=== PATIENT | male | born 1980 | race Caucasian/White ===

== ENCOUNTER → 2021-01-19 08:52 | Outpatient (CLI) | payer OTHER, SELFPAY ==
[2021-01-19 11:17] LABS: COVID19 -Nasal RAPID Negative (Negative)
== END ==
PROVIDERS: Visit Provider Specialist
DX: Z20.822 Contact with and (suspected) exposure to COVID-19 (principal)
CPT/HCPCS: 87635; C9803

== ENCOUNTER 2021-01-20 10:08 | Day surgery (SDC) | payer OTHER, SELFPAY ==
[2021-01-18 09:49] VITALS: BMI 29.1
[2021-01-20] VITALS (9 sets, daily range): BP systolic 123–144; BP diastolic 80–92; PULSE 70–84; RESP 12–20; TEMP 36.1–37.1; O2SAT 96–99; BMI 29.1
[2021-01-20] MEDS: LACTATED RINGERS 1,000 ML 42 ML IV (10:31)
[2021-01-20] MEDS: ACETAMINOPHEN 325 MG TABLET 975 MG PO (10:49)
[2021-01-20] MEDS: GABAPENTIN 300 MG CAPSULE PO (10:50)
--- NOTE | 2021-01-20 14:46 | PM.PREOP ---
Pre-operative Note COVID-19 COVID-19 status: Negative Result date/Date tested (Pos, Neg/Pending): 01/19/21 Interval Note History & Physical reviewed/Exam performed by Physician: Yes Changes to H&P: No
[2021-01-20] MEDS: CEFAZOLIN 1 GM VIAL 2 GM IV (15:11)
--- NOTE | 2021-01-20 15:19 | SUR.OPER ---
Supine on padded OR bed, head on pillow, arms secured on padded arm boards at <90 degrees abduction, legs uncrossed, safety belt at thigh, tape over blanket over lower legs.
[2021-01-20] MEDS: BUPIVACAINE 0.25% (PF) VIAL 30 ML INJ (15:23)
--- NOTE | 2021-01-20 16:10 | PM.OP.1 ---
Operative Date/Time/Diagnoses Date of procedure: 01/20/21 Time of procedure: 16:10 Pre-op diagnosis: Reducible left inguinal hernia Post-op diagnosis: same Procedure & Clinicians Procedure: repair with plug and patch technique Same procedure as scheduled: Yes Indications: symptomatic hernia Surgeon: Garrison Coppola Click Yes if Unassisted: Yes Anesthesia Type: General Operative Notes Findings: no indirect sac. Large lipoma of the cord. Closure Type: primary Specimen(s): none sent Prosthetic devices, grafts, tissues, transplants, or devices: small plug and patch Blood products transfused: none Procedure in detail: The patient was placed supine on the operating room table and underwent general LMA anesthesia. He was prepped and draped in the usual fashion. A transverse incision was made overlying the Leftinternal ring and carried down to the level of the external oblique. The external oblique was opened parallel with its fibers through the external ring. The cord structures were elevated. The cremaster was opened proximally and search made for an indirect sac . no indirect sac was found the patient did have a large lipoma of the cord. The fat was from the cord structures and ligated proximally. Distal portion was removed. Small plug was placed in the defect created by the fat. Was tacked in place with interrupted 0 Ethibond suture. Cremaster was closed with 3-0 Vicryl. The floor was examined and was found to be Relatively intact.. A patch was placed across the floor and tacked at the pubic tubercle, the posterior lamella of the anterior rectus sheath, the ilioinguinal ligament, and superior lateral to the cord. The opening was modified as necessary to prevent tight constriction of the cord. Sutures of 0 Tycron were used to secure the mesh. The external oblique was closed with a running 3 0 Vicryl. The subcu was closed with interrupted 3 0 Vicryl. The skin was closed with a running 4 0 Vicryl subcuticular stitch and Steri-Strips. Dressing was applied, the patient was awakened, and the patient was taken to the recovery area in good condition. Complications: none Post-operative Condition: stable Disposition: PACU
[2021-01-20] MEDS: HYDROMORPHONE 2 MG TABLET PO (16:42)
--- NOTE | 2021-01-20 16:51 | SUR.PHASEI ---
Pt transferred to pacu phase 2 in stable condition, VSS sitting up drinking coffee and chatting with staff. Report to MILLA Gomez
== END 2021-01-20 17:20 | disposition home or self-care (01) ==
PROVIDERS: Referring Provider Specialist; Visit Provider Specialist
PROC: (CPT 49505; principal; 2021-01-20 14:15)
DX: K40.90 Unilateral inguinal hernia, without obstruction or gangrene, not specified as recurrent (principal); D17.6 Benign lipomatous neoplasm of spermatic cord; G47.33 Obstructive sleep apnea (adult) (pediatric)
CPT/HCPCS: 49505; C1781; J0690; J1100; J1885; J2405; J2704; J3010